=== PATIENT | male | born 1995 | race Caucasian/White ===

== ENCOUNTER 2019-02-14 11:07 | Emergency (ER) | payer SELFPAY ==
[~2019-02-14] VITALS: Ht 180.3 cm; Wt 77.1 kg
[2019-02-14 11:10] VITALS: BP_SYST 116
--- NOTE | 2019-02-14 11:15 | NUR ---
Patient triaged and placed in waiting room. VSS and patient appears in no acute distress at this time. Accompanied by FRIEND, awaiting available bed, and MD notified of need for MSE.
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
--- NOTE | 2019-02-14 12:26 | NUR ---
BROUGHT BACK TO BED #7 AND REPORT GIVEN TO NINI
--- NOTE | 2019-02-14 12:30 | NUR ---
DR GANDHI AT BEDSIDE FOR EVALUATION
[2019-02-14 12:53] VITALS: BP_SYST 109
--- NOTE | 2019-02-14 12:53 | NUR ---
Patient given written and verbal discharge instructions and verbalizes understanding. ER MD discussed with patient the results and treatment provided. Patient in stable condition. ID arm band removed. Rx of MOTRIN given. Patient educated on pain management and to follow up with PMD. Pain Scale 0/10. Opportunity for questions provided and answered. Medication side effect fact sheet provided.
== END 2019-02-14 12:53 | disposition home or self-care (01) ==
LOC: SED 11:07
DX: S40.211A Abrasion of right shoulder, initial encounter (principal); R03.0 Elevated blood-pressure reading, without diagnosis of hypertension; V43.52XA Car driver injured in collision with other type car in traffic accident, initial encounter; Y93.89 Activity, other specified; Y92.410 Unspecified street and highway as the place of occurrence of the external cause; Y99.8 Other external cause status
CPT/HCPCS: 70360-TC; 73030; 99283